=== PATIENT | male | born 1955 | race Caucasian/White ===

== ENCOUNTER → 2019-08-19 09:26 | Outpatient (BNVA) | payer MEDICARE, SELFPAY | PROVIDERS: Family Provider Family Medicine; PCP Family Medicine | DX: Z01.89 Encounter for other specified special examinations (principal) | CPT/HCPCS: 36415; 86592; 86706; 86803; 87340 ==

== ENCOUNTER → 2020-03-21 09:40 | Outpatient (BNVA) | payer MEDICARE, SELFPAY | PROVIDERS: Family Provider Family Medicine; PCP Family Medicine; Visit Provider Family Medicine | DX: I10 Essential (primary) hypertension (principal); Z13.220 Encounter for screening for lipoid disorders; Z13.6 Encounter for screening for cardiovascular disorders | CPT/HCPCS: 80048; 80061 ==

== ENCOUNTER → 2020-06-12 08:59 | Outpatient (BNVA) | payer MEDICARE, SELFPAY | PROVIDERS: Family Provider Family Medicine; PCP Family Medicine; Visit Provider Family Medicine | DX: R39.9 Unspecified symptoms and signs involving the genitourinary system (principal) | CPT/HCPCS: 81000 ==

== ENCOUNTER → 2022-03-04 10:31 | Outpatient (BNVA) | payer MEDICARE, SELFPAY | PROVIDERS: Family Provider Family Medicine; PCP Family Medicine; Visit Provider Family Medicine | DX: I10 Essential (primary) hypertension (principal); Z13.220 Encounter for screening for lipoid disorders; Z13.6 Encounter for screening for cardiovascular disorders | CPT/HCPCS: 80053; 80061 ==

== ENCOUNTER → 2023-03-03 09:41 | Outpatient (BNVA) | payer MEDICARE, SELFPAY | PROVIDERS: Family Provider Family Medicine; PCP Family Medicine; Visit Provider Family Medicine | DX: I10 Essential (primary) hypertension (principal); Z13.220 Encounter for screening for lipoid disorders; Z13.6 Encounter for screening for cardiovascular disorders; Z53.20 Procedure and treatment not carried out because of patient's decision for unspecified reasons | CPT/HCPCS: 80053; 80061 ==

== ENCOUNTER → 2024-02-22 09:42 | Outpatient (BNVA) | payer MEDICARE, SELFPAY | PROVIDERS: Family Provider Family Medicine; PCP Family Medicine; Visit Provider Family Medicine | DX: I10 Essential (primary) hypertension (principal); Z13.220 Encounter for screening for lipoid disorders; Z13.6 Encounter for screening for cardiovascular disorders; E55.9 Vitamin D deficiency, unspecified; R53.83 Other fatigue; Z53.20 Procedure and treatment not carried out because of patient's decision for unspecified reasons; D22.9 Melanocytic nevi, unspecified; Z86.39 Personal history of other endocrine, nutritional and metabolic disease; Z79.899 Other long term (current) drug therapy | CPT/HCPCS: 80053; 80061; 82652 ==

== ENCOUNTER 2024-05-25 15:31 | Outpatient (CLI) | payer MEDICARE, SELFPAY ==
--- NOTE | 2024-05-25 15:45 | USR_ITS ---
PROCEDURE INFORMATION: Exam: US Pelvis, Complete, Non-Obstetric Exam date and time: 05/25/2024 3:39 PM Age: 68 years old Clinical indication: Menstruation abnormalities; Postmenopausal bleeding; Additional info: N95.0 - postmenopausal bleeding TECHNIQUE: Imaging protocol: Transabdominal pelvic nonobstetric ultrasound. Complete exam. Real time ultrasound with image documentation. COMPARISON: No relevant prior studies available. FINDINGS: Tubes, catheters and devices: Pelvic pessary noted. Uterus: Uterus is normal. Endometrial stripe is normal, measuring 0.3 cm in thickness. Right ovary/adnexa: Obscured by overlying bowel gas. Left ovary/adnexa: Obscured by overlying bowel gas. Intraperitoneal space: No intraperitoneal fluid. Urinary bladder: Normal. US/US pelvic complete* [id number] IMPRESSION: No acute findings.
== END 2024-05-25 15:32 | disposition home or self-care (01) ==
LOC: RAD 15:31
PROVIDERS: Family Provider Family Medicine; PCP Family Medicine; Visit Provider Family Medicine
DX: N95.0 Postmenopausal bleeding (principal)
CPT/HCPCS: 76856

== ENCOUNTER → 2025-02-20 08:35 | Outpatient (BNVA) | payer MEDICARE, SELFPAY | PROVIDERS: Family Provider Family Medicine; PCP Family Medicine; Visit Provider Family Medicine | DX: I10 Essential (primary) hypertension (principal); Z13.220 Encounter for screening for lipoid disorders; Z13.6 Encounter for screening for cardiovascular disorders; Z86.39 Personal history of other endocrine, nutritional and metabolic disease; E55.9 Vitamin D deficiency, unspecified | CPT/HCPCS: 80048; 80061; 82652 ==